=== PATIENT | male | born 1995 | race African-American/Black ===

== ENCOUNTER 2018-07-16 17:40 | Emergency (ER) | payer MEDICAID ==
[~2018-07-16] VITALS: Ht 170.2 cm; Wt 66.0 kg
[2018-07-16 18:12] VITALS: BP 145/88
== END 2018-07-16 20:00 | disposition left against medical advice (07) ==
LOC: ER 17:40
DX: K08.89 Other specified disorders of teeth and supporting structures (principal); F17.200 Nicotine dependence, unspecified, uncomplicated; F12.10 Cannabis abuse, uncomplicated
CPT/HCPCS: 99281

== ENCOUNTER 2019-02-05 12:58 | Emergency (ER) | payer MEDICAID ==
[~2019-02-05] VITALS: Ht 177.8 cm; Wt 79.0 kg
[2019-02-05] MEDS ORDERED: ONDANSETRON HCL 4MG/2ML INJ IV STA (13:36)
[2019-02-05] MEDS ORDERED: SODIUM CHLORIDE 0.9% 1,000 ML IV ONE (13:36)
[2019-02-05] MEDS ORDERED: MORPHINE SULFATE 4 MG/ML CPJ (NOT FOR IM USE) IV STA (13:36)
[2019-02-05 15:40] LABS: BASOPHILS % 0.2 % (0.0-2.0); EOSINOPHILS % 0.1 % (0.0-5.0); HEMATOCRIT. 41.7 % (42.0-52.0); HEMOGLOBIN. 14.2 g/dL (14.0-18.0); LYMPHOCYTES % 12.6 % (20.0-50.0); MEAN CORPUSCULAR HEMOGLOBIN 29.4 pg (28.0-32.0); MEAN PLATELET VOLUME 7.3 fl (7.4-10.4); MONOCYTES % 6.2 % (2.0-8.0); NEUTROPHILS % 80.9 % (40.0-76.0); PLATELET 398 x1000/uL (130-400); RED BLOOD CELL COUNT 4.85 mill/uL (4.7-6.1); RED CELL DISTRIBUTION WIDTH 14.9 % (11.6-14.6)
[2019-02-05 15:45] LABS: CHLORIDE 104 mEq/L (98-107)
[2019-02-05 15:47] LABS: PROTHROMBIN TIME 10.5 sec (9.1-11.1)
[2019-02-05 15:51] LABS: ETHANOL BLOOD < 10 mg/dL
[2019-02-05 16:18] LABS: *AMPHETAMINES SCREEN URINE PRESUMTIVE POSITIVE (NEGATIVE); *BARBITURATES SCREEN URINE NEGATIVE (NEGATIVE); *COCAINE SCREEN URINE PRESUMTIVE POSITIVE (NEGATIVE)
[2019-02-05 16:19] LABS: *BENZODIAZEPINES SCREEN URINE NEGATIVE (NEGATIVE); CANNABINOID URINE SCREEN PRESUMTIVE POSITIVE (NEGATIVE); METHADONE URINE SCREEN NEGATIVE (NEGATIVE); OPIATES URINE SCREEN PRESUMTIVE POSITIVE (NEGATIVE); PHENCYCLIDINE URINE SCREEN NEGATIVE (NEGATIVE)
[2019-02-05] MEDS ORDERED: KETOROLAC 30MG/ML VIAL IV ONE (16:30)
[2019-02-05 17:45] VITALS: BP 132/78
== END 2019-02-05 19:40 | disposition home or self-care (01) ==
LOC: ER 13:13
DX: S82.144A Nondisplaced bicondylar fracture of right tibia, initial encounter for closed fracture (principal); F15.10 Other stimulant abuse, uncomplicated; F12.10 Cannabis abuse, uncomplicated; F14.10 Cocaine abuse, uncomplicated; W17.89XA Other fall from one level to another, initial encounter; Y93.89 Activity, other specified; Y92.488 Other paved roadways as the place of occurrence of the external cause
CPT/HCPCS: 29505; 36415; 71045; 72040; 72192; 73562; 73650; 73700; 80048; 80305; 80320; 85025; 85610; 85730; 86850; 86900; 86901; 96374; 96375; 99284; J1885; J2270; J2405; J7030; Z7610; G0480

== ENCOUNTER 2020-08-22 01:14 | Emergency (ER) | payer MEDICAID ==
[~2020-08-22] VITALS: Ht 165.1 cm; Wt 65.0 kg
[2020-08-22 01:21] VITALS: BP 153/83
== END 2020-08-22 02:16 | disposition home or self-care (01) ==
LOC: ER 01:14
DX: F91.8 Other conduct disorders (principal); F99 Mental disorder, not otherwise specified; F12.10 Cannabis abuse, uncomplicated
CPT/HCPCS: 93005; 99283

== ENCOUNTER 2020-08-22 09:41 | Emergency (ER) | payer MEDICAID ==
[~2020-08-22] VITALS: Ht 175.3 cm; Wt 69.0 kg
[2020-08-22] MEDS ORDERED: DIPHENHYDRAMINE 50MG/ML VIAL IM STA (09:55)
[2020-08-22] MEDS ORDERED: OLANZAPINE 10 MG/VIAL IM STA (09:55)
[2020-08-22] MEDS ORDERED: LORAZEPAM 2MG/ML CPJ IM STA (09:55)
[2020-08-22 11:16] LABS: BASOPHILS % 0.4 % (0.0-2.0); CLARITY URINE CLEAR (CLEAR); COLOR URINE YELLOW (YELLOW); EOSINOPHILS % 0.1 % (0.0-5.0); HEMATOCRIT. 42.6 % (42.0-52.0); HEMOGLOBIN. 14.6 g/dL (14.0-18.0); KETONES URINE 2+ (NEGATIVE); LEUKOCYTE ESTERASE URINE NEGATIVE (NEGATIVE); LYMPHOCYTES % 12.7 % (20.0-50.0); MEAN CORPUSCULAR HEMOGLOBIN 29.7 pg (28.0-32.0); MEAN CORPUSCULAR VOLUME 86.7 fL (80.0-94.0); MEAN PLATELET VOLUME 7.4 fl (7.4-10.4); MONOCYTES % 6.2 % (2.0-8.0); NEUTROPHILS % 80.6 % (40.0-76.0); NITRITE URINE NEGATIVE (NEGATIVE); OCCULT BLOOD URINE TRACE (NEGATIVE); PLATELET 279 x1000/uL (130-400); PROTEIN URINE TRACE (NEGATIVE); RED BLOOD CELL COUNT 4.92 mill/uL (4.7-6.1); RED CELL DISTRIBUTION WIDTH 14.6 % (11.6-14.6); UROBILINOGEN URINE 0.2 E.U./dL (0.2-1.0)
[2020-08-22 11:22] LABS: CHLORIDE 102 mEq/L (98-107)
[2020-08-22 11:27] LABS: ETHANOL BLOOD < 10 mg/dL
[2020-08-22 11:30] LABS: *AMPHETAMINES SCREEN URINE PRESUMTIVE POSITIVE (NEGATIVE); *BARBITURATES SCREEN URINE NEGATIVE (NEGATIVE); *BENZODIAZEPINES SCREEN URINE PRESUMTIVE POSITIVE (NEGATIVE); *COCAINE SCREEN URINE NEGATIVE (NEGATIVE)
[2020-08-22 11:32] LABS: CANNABINOID URINE SCREEN PRESUMTIVE POSITIVE (NEGATIVE); METHADONE URINE SCREEN NEGATIVE (NEGATIVE); OPIATES URINE SCREEN NEGATIVE (NEGATIVE); PHENCYCLIDINE URINE SCREEN PRESUMTIVE POSITIVE (NEGATIVE)
[2020-08-23 04:29] VITALS: BP 122/63
== END 2020-08-23 06:33 | disposition home or self-care (01) ==
LOC: ER 09:41
DX: F15.10 Other stimulant abuse, uncomplicated (principal); F20.9 Schizophrenia, unspecified; F12.10 Cannabis abuse, uncomplicated; Z59.0 Homelessness; Z78.1 Physical restraint status
CPT/HCPCS: 36415; 80053; 80305; 80320; 81003; 85025; 96372; 99285; J1200; J2060; J3490; G0480

== ENCOUNTER 2020-10-02 17:05 | Emergency (ER) | payer MEDICAID ==
[~2020-10-02] VITALS: Ht 170.2 cm; Wt 68.2 kg
[2020-10-02 17:41] VITALS: BP 135/77
[2020-10-02] MEDS ORDERED: KETOROLAC 60MG/2ML VIAL IM ONE (18:45)
== END 2020-10-02 22:14 | disposition home or self-care (01) ==
LOC: ER 17:05
DX: J06.9 Acute upper respiratory infection, unspecified (principal); R06.00 Dyspnea, unspecified; Z20.828 Contact with and (suspected) exposure to other viral communicable diseases; F12.10 Cannabis abuse, uncomplicated; F15.10 Other stimulant abuse, uncomplicated; F16.10 Hallucinogen abuse, uncomplicated
CPT/HCPCS: 71045; 87635; 99284; J1885

== ENCOUNTER 2022-07-30 17:10 | Emergency (ER) | payer MEDICAID ==
[~2022-07-30] VITALS: Ht 172.7 cm; Wt 70.0 kg
[2022-07-30] MEDS ORDERED: MAGNESIUM/ALUMINUM HYDROXIDE/SIMETHICONE 30ML UDC PO STA (21:03)
[2022-07-30] MEDS ORDERED: ONDANSETRON HCL 4MG/2ML INJ IV STA (21:03)
[2022-07-30] MEDS ORDERED: FAMOTIDINE 20MG/2ML VIAL IV STA (21:03)
[2022-07-30] MEDS ORDERED: SODIUM CHLORIDE 0.9% 1,000 ML IV ONE (21:15)
[2022-07-30 21:39] LABS: BASOPHILS % 0.6 % (0.0-2.0); EOSINOPHILS % 0.1 % (0.0-5.0); HEMATOCRIT. 44.6 % (42.0-52.0); HEMOGLOBIN. 14.9 g/dL (14.0-18.0); LYMPHOCYTES % 9.5 % (20.0-50.0); MEAN CORPUSCULAR HEMOGLOBIN 29.8 pg (28.0-32.0); MEAN CORPUSCULAR VOLUME 88.9 fL (80.0-94.0); MONOCYTES % 3.5 % (2.0-8.0); NEUTROPHILS % 86.3 % (40.0-76.0); PLATELET 458 x1000/uL (130-400); RED BLOOD CELL COUNT 5.02 mill/uL (4.7-6.1); RED CELL DISTRIBUTION WIDTH 14.3 % (11.6-14.6)
[2022-07-30 21:48] LABS: CHLORIDE 101 mEq/L (98-107)
[2022-07-30] MEDS ORDERED: ACETAMINOPHEN 325MG TABLET PO NR (23:00)
[2022-07-30] MEDS ORDERED: QUET200T MT (23:38)
[2022-07-30] MEDS ORDERED: RISP3 MT (23:38)
[2022-07-30] MEDS ORDERED: QUETIAPINE FUMARATE 25MG TABLET PO SCH (23:45)
[2022-07-30] MEDS ORDERED: RISPERIDONE 1MG TABLET PO SCH (23:45)
[2022-07-31] VITALS: BP 124/90
== END 2022-07-31 00:03 | disposition home or self-care (01) ==
LOC: ER 17:10
DX: R11.2 Nausea with vomiting, unspecified (principal); F31.9 Bipolar disorder, unspecified
CPT/HCPCS: 36415; 80053; 83690; 85025; 87426; 96361; 96374; 96375; 99283; C9803; J2405; J3490; J7030

== ENCOUNTER 2022-11-13 00:24 | Emergency (ER) | payer MEDICAID ==
[~2022-11-13] VITALS: Ht 175.3 cm; Wt 61.0 kg
[~2022-11-13 00:24] MED LIST: QUET200T MT; RISP3 MT
[2022-11-13 02:40] LABS: BASOPHILS % 0.4 % (0.0-2.0); HEMOGLOBIN. 14.3 g/dL (14.0-18.0); LYMPHOCYTES % 11.4 % (20.0-50.0); MEAN CORPUSCULAR HEMOGLOBIN 29.1 pg (28.0-32.0); MEAN CORPUSCULAR VOLUME 85.6 fL (80.0-94.0); MEAN PLATELET VOLUME 7.3 fl (7.4-10.4); MONOCYTES % 6.5 % (2.0-8.0); NEUTROPHILS % 81.7 % (40.0-76.0); PLATELET 400 x1000/uL (130-400); RED BLOOD CELL COUNT 4.91 mill/uL (4.7-6.1); RED CELL DISTRIBUTION WIDTH 14.2 % (11.6-14.6)
[2022-11-13] MEDS ORDERED: OLANZAPINE 10 MG/VIAL IM ONE ×2 (02:45→11:45)
[2022-11-13 02:50] LABS: CHLORIDE 103 mEq/L (98-107)
[2022-11-13 02:56] LABS: *AMPHETAMINES SCREEN URINE PRESUMTIVE POSITIVE (NEGATIVE); *BARBITURATES SCREEN URINE NEGATIVE (NEGATIVE); *BENZODIAZEPINES SCREEN URINE NEGATIVE (NEGATIVE); *COCAINE SCREEN URINE NEGATIVE (NEGATIVE); CANNABINOID URINE SCREEN PRESUMTIVE POSITIVE (NEGATIVE); ETHANOL BLOOD < 10 mg/dL; METHADONE URINE SCREEN NEGATIVE (NEGATIVE); OPIATES URINE SCREEN NEGATIVE (NEGATIVE); PHENCYCLIDINE URINE SCREEN PRESUMTIVE POSITIVE (NEGATIVE)
[2022-11-13] MEDS ORDERED: LORAZEPAM 2MG/ML CPJ IM STA (11:44)
[2022-11-13] MEDS ORDERED: OLANZAPINE 5MG TABLET PO SCH (17:00)
[2022-11-14] MEDS ORDERED: OLANZAPINE 10 MG/VIAL IM ONE (06:45)
[2022-11-14 08:00] VITALS: BP 128/62
== END 2022-11-14 08:25 | disposition short-term general hospital (02) ==
LOC: ER 00:44
DX: R45.851 Suicidal ideations (principal); Z20.822 Contact with and (suspected) exposure to COVID-19
CPT/HCPCS: 36415; 80053; 80305; 80307; 80320; 80329; 85025; 87426; 93005; 96372; 99285; C9803; J2060; J3490; U0003; U0005; G0480

== ENCOUNTER 2022-12-17 13:49 | Emergency (ER) | payer MEDICAID ==
[~2022-12-17] VITALS: Ht 172.7 cm; Wt 81.6 kg
[2022-12-17] MEDS ORDERED: KETOROLAC 15MG/ML VIAL IV ONE (14:00)
[2022-12-17] MEDS ORDERED: SODIUM CHLORIDE 0.9% 1,000 ML IV ONE (14:00)
[2022-12-17] MEDS ORDERED: AMOXICILLIN/POTASSIUM CLAVULANATE 875/125MG TAB PO ONE (14:00)
[2022-12-17] MEDS ORDERED: ACETAMINOPHEN 325MG TABLET PO ONE (14:00)
[2022-12-17 14:01] VITALS: BP 148/64
[2022-12-17] MEDS ORDERED: AMOXICILLIN/POTASSIUM CLAVULANATE 875/125MG TAB PO NR (15:00)
[2022-12-17 15:38] LABS: BASOPHILS % 0.5 % (0.0-2.0); EOSINOPHILS % 0.7 % (0.0-5.0); HEMATOCRIT. 42.5 % (42.0-52.0); HEMOGLOBIN. 14.5 g/dL (14.0-18.0); LYMPHOCYTES % 18.1 % (20.0-50.0); MEAN CORPUSCULAR HEMOGLOBIN 29.8 pg (28.0-32.0); MEAN CORPUSCULAR VOLUME 87.4 fL (80.0-94.0); MEAN PLATELET VOLUME 7.4 fl (7.4-10.4); MONOCYTES % 7.3 % (2.0-8.0); NEUTROPHILS % 73.4 % (40.0-76.0); PLATELET 302 x1000/uL (130-400); RED BLOOD CELL COUNT 4.86 mill/uL (4.7-6.1); RED CELL DISTRIBUTION WIDTH 14.8 % (11.6-14.6)
[2022-12-17 15:50] LABS: CHLORIDE 106 mEq/L (98-107)
[2022-12-17] MEDS ORDERED: IOHEXOL-300 100 ML BOTTLE ONE (16:57)
[2022-12-17] MEDS ORDERED: IBUP-2029 MT (17:09)
[2022-12-17] MEDS ORDERED: AMOX1TAB16 MT (17:09)
== END 2022-12-17 18:16 | disposition home or self-care (01) ==
LOC: ER 13:49
DX: K04.7 Periapical abscess without sinus (principal); R22.0 Localized swelling, mass and lump, head; F20.9 Schizophrenia, unspecified; F32.A Depression, unspecified
CPT/HCPCS: 36415; 70487; 80053; 85025; 96361; 96374; 99284; J1885; J7030; Q9967

== ENCOUNTER 2024-11-28 06:21 | Emergency (ER) | payer MEDICAID ==
[~2024-11-28] VITALS: Ht 170.2 cm; Wt 84.2 kg
[~2024-11-28 06:21] MED LIST changes: +AMOX1TAB16 MT; +IBUP-2029 MT
[2024-11-28 06:37] VITALS: BP 142/88; PULSE 90; RESP 16; TEMP 98.2; O2SAT 99
== END 2024-11-28 08:35 | disposition home or self-care (01) ==
LOC: ER 06:21
DX: F19.90 Other psychoactive substance use, unspecified, uncomplicated (principal); F31.9 Bipolar disorder, unspecified; Z79.899 Other long term (current) drug therapy; Z86.59 Personal history of other mental and behavioral disorders
CPT/HCPCS: 99281

== ENCOUNTER 2025-11-09 12:29 | Emergency (ER) | payer MEDICAID ==
[~2025-11-09] VITALS: Ht 177.8 cm; Wt 85.0 kg
[~2025-11-09 12:29] MED LIST changes: +IBUP-1455 MT; -IBUP-2029 MT
[2025-11-09 12:35] VITALS: O2SAT 98
[2025-11-09] MEDS: SODIUM CHLORIDE 0.9% 1,000 ML IV ONE (13:14)
[2025-11-09 13:30] LABS: BASOPHILS % 0.2 % (0.0-2.0); EOSINOPHILS % 0.0 % (0.0-5.0); HEMATOCRIT. 43.2 % (42.0-52.0); HEMOGLOBIN. 14.8 g/dL (14.0-18.0); LYMPHOCYTES % 20.2 % (20.0-50.0); MEAN PLATELET VOLUME 8.0 fl (7.4-10.4); MONOCYTES % 5.7 % (2.0-8.0); NEUTROPHILS % 73.9 % (40.0-76.0); PLATELET 290 x1000/uL (130-400); RED BLOOD CELL COUNT 5.05 mill/uL (4.7-6.1); RED CELL DISTRIBUTION WIDTH 14.1 % (11.6-14.6)
[2025-11-09] MEDS ORDERED: LORAZEPAM 2MG/ML UD SYRINGE IV NR (13:30)
[2025-11-09 14:05] LABS: CREATININE 1.2 mg/dL (0.6-1.3)
[2025-11-09 14:06] LABS: PROTEIN TOTAL 7.9 g/dL (6.0-8.3); UREA NITROGEN BLOOD 11 mg/dL (9-23)
[2025-11-09 14:07] LABS: ASPARTATE AMINOTRANSFERASE 83 IU/L (<34); TROPONIN I HIGH SENSITIVITY 4 ng/L (3.0-53)
[2025-11-09 14:08] LABS: BILIRUBIN DIRECT 0.2 mg/dL (<=3.0); BILIRUBIN TOTAL 0.8 mg/dL (0.1-1.0)
[2025-11-09] MEDS: QUETIAPINE FUMARATE 50MG TABLET PO SCH (15:20)
[2025-11-09 15:21] LABS: TROPONIN I HIGH SENSITIVITY 5 ng/L (3.0-53)
[2025-11-09] MEDS ORDERED: QUETIAPINE FUMARATE 50MG TABLET PO SCH (16:15)
[2025-11-09] MEDS ORDERED: QUET100T MT (16:43)
[2025-11-09 16:58] VITALS: BP 129/80; PULSE 93; RESP 18; TEMP 37; O2SAT 99
[2025-11-09] MEDS ORDERED: QUETIAPINE FUMARATE 200MG TABLET PO SCH (21:00)
[2025-11-10] MEDS ORDERED: QUETIAPINE FUMARATE 50MG TABLET PO SCH (16:15)
== END 2025-11-09 17:10 | disposition home or self-care (01) ==
LOC: ER 12:29 → CANBEDREQ 14:24 → ER 17:10
DX: F19.10 Other psychoactive substance abuse, uncomplicated (principal); G47.00 Insomnia, unspecified; F31.9 Bipolar disorder, unspecified; F20.9 Schizophrenia, unspecified; Z76.0 Encounter for issue of repeat prescription; Z79.899 Other long term (current) drug therapy; Z20.822 Contact with and (suspected) exposure to COVID-19
CPT/HCPCS: 80076; 80048; 80320; 83690; 85025; 84484; 36415; 71045; 93005; 96360; 96361; 99285; 87426; Z7610; J7030; J2060; G0480